=== PATIENT | male | born 1935 | race Caucasian/White ===

== ENCOUNTER 2018-08-07 20:51 | Inpatient (IN) ==
[2018-08-07] MEDS ORDERED: SODIUM CHLORIDE 0.9% 1,000 ML IV STA (22:06)
[2018-08-07] MEDS ORDERED: CEFEPIME 2,000 MG in SODIUM CHLORIDE 0.9% 100 ML IV STA (22:08)
[2018-08-07] MEDS ORDERED: VANCOMYCIN INJ 1,000 MG in SODIUM CHLORIDE 0.9% 250 ML IV STA (22:09)
[2018-08-07 22:46] LABS: Basophils % 0.3 % (0.0-0.8); Eosinophils # 0.1 10*3/uL (0.0-0.87); Eosinophils % 0.9 % (0.00-10.9); Hematocrit 40.7 VOL% (42.0-52.0); Hemoglobin 13.1 GM/DL (14.0-18.0); Immature Granulocytes % 0.4 %; Immature Granulocytes Absolute 0.04 #; Lymphocytes % 9.6 % (21.2-54.2); Mean Corpuscular HGB Conc 32.2 GM/DL (32-36); Mean Corpuscular Hemoglobin 32 PG (27-34); Mean Platelet Volume 10.3 FL (9.6-12.0); Monocytes # 0.7 10*3/uL (0.11-0.8); Monocytes % 7.1 % (1.7-12.7); Neutrophils # 8.2 10*3/uL (1.4-7.4); Neutrophils % 81.7 % (38.7-73.9); Platelet Count 167 T/CUMM (130-400); Red Blood Count 4.07 MC/CUMM (3.8-5.5); Red Cell Distribution Width 13.2 % (9.3-17.3); White Blood Count 10.1 T/CUMM (4-12)
[2018-08-07 23:07] LABS: Albumin 3.3 G/DL (3.4-5.0); Bilirubin,Total 0.5 MG/DL (0.2-1.0); Calcium 8.6 MG/DL (8.5-10.1); Osmolality,Calculated 281.7 MOS/KG (273-304); Total Protein 6.8 G/DL (6.4-8.3)
[2018-08-07] MEDS ORDERED: ceFAZolin 1,000 MG VIAL ONE (23:26)
[2018-08-07] MEDS ORDERED: SODIUM CHLORIDE 0.9% 100 ML IV ONE ×2 (23:27→23:36)
[2018-08-07] MEDS ORDERED: CEFEPIME 1,000 MG VIAL ONE (23:33)
[2018-08-08 01:21] LABS: Apearance,Urine Slightly Hazy (Clear); Bilirubin,Urine Negative (Negative); Blood, Urine Moderate mg/dL (Negative); Glucose,Urine (UA) Negative (Negative); Ketones,Urine Negative (Negative); Mucus,Urine Occasional /LPF (Occasional); Nitrite,Urine Positive (Negative); Protein,Urine 30 MG/DL; RBC,Urine 15 /HPF (0-4); Uric Acid Crystals,Urine Moderate /HPF (<1); Urine Color Yellow (Yellow); Urine Specific Gravity 1.024 (1.001-1.035); Urine Urobilinogen < 2.0 EU/DL (0.2-1.0); WBC,Urine 48 /HPF (0-6)
[2018-08-08] MEDS ORDERED: LORazepam 2 MG/1 ML VIAL IV STA (01:22)
[2018-08-08] MEDS ORDERED: ACETAMINOPHEN 325 MG TABLET PO PRN (02:38)
[2018-08-08] MEDS ORDERED: ONDANSETRON 4 MG/2 ML VIAL IV PRN (02:38)
[2018-08-08] MEDS: DEXTROSE 5% NACL 0.9% 1,000 ML IV SCH ×3 (04:03→20:15)
[2018-08-08] MEDS ORDERED: GLUCAGON 1 MG VIAL IM PRN (09:04)
[2018-08-08] MEDS ORDERED: DEXTROSE 50% 25 GM/50 ML SYRINGE IV PRN (09:04)
[2018-08-08 09:27] LABS: Basophils % 0.3 % (0.0-0.8); Eosinophils # 0.1 10*3/uL (0.0-0.87); Eosinophils % 1.5 % (0.00-10.9); Hematocrit 37.8 VOL% (42.0-52.0); Hemoglobin 12.2 GM/DL (14.0-18.0); Immature Granulocytes % 0.5 %; Immature Granulocytes Absolute 0.03 #; Lymphocytes # 0.7 10*3/uL (1.4-4.0); Lymphocytes % 10.4 % (21.2-54.2); Mean Corpuscular HGB Conc 32.3 GM/DL (32-36); Mean Corpuscular Hemoglobin 32 PG (27-34); Mean Corpuscular Volume 99.7 FL (87-102); Mean Platelet Volume 10.3 FL (9.6-12.0); Monocytes # 0.6 10*3/uL (0.11-0.8); Monocytes % 9.5 % (1.7-12.7); Neutrophils # 5.2 10*3/uL (1.4-7.4); Neutrophils % 77.8 % (38.7-73.9); Platelet Count 147 T/CUMM (130-400); Red Blood Count 3.79 MC/CUMM (3.8-5.5); Red Cell Distribution Width 13.2 % (9.3-17.3); White Blood Count 6.6 T/CUMM (4-12)
[2018-08-08] MEDS: DONEPEZIL 10 MG TABLET PO SCH ×2 (09:41→09:58)
[2018-08-08] MEDS: CEFEPIME 2,000 MG in SODIUM CHLORIDE 0.9% 100 ML IV SCH ×2 (09:41→18:01)
[2018-08-08] MEDS: sitaGLIPtin 100 MG TABLET PO SCH ×2 (09:41→09:53)
[2018-08-08] MEDS: LEVOTHYROXINE 25 MCG TABLET PO SCH ×2 (09:42→09:58)
[2018-08-08] MEDS: PANTOPRAZOLE 40 MG VIAL IV SCH (09:42)
[2018-08-08] MEDS: LOSARTAN 50 MG TABLET PO SCH ×2 (09:42→09:59)
[2018-08-08] MEDS: SERTRALINE 50 MG TABLET PO SCH ×2 (09:42→09:59)
[2018-08-08] MEDS: ASPIRIN CHEW 81 MG TABLET PO SCH ×2 (09:42→09:59)
[2018-08-08 09:49] LABS: Calcium 7.9 MG/DL (8.5-10.1); Osmolality,Calculated 281.5 MOS/KG (273-304); Potassium 3.8 MMOL/L (3.5-5.1)
[2018-08-08] MEDS: VANCOMYCIN INJ 1,250 MG in SODIUM CHLORIDE 0.9% 250 ML IV SCH (12:28)
[2018-08-08] MEDS ORDERED: MAGNESIUM SULF RIDER 2 GM in PREMIX 1 EACH IV ONE (13:08)
[2018-08-08] MEDS ORDERED: ALPRAZolam 0.25 MG TABLET PO SCH (13:30)
[2018-08-08] MEDS: methylPREDNISolone SOD SUC 40 MG/1 ML VIAL IV SCH (14:27)
[2018-08-08] MEDS ORDERED: LORazepam 2 MG/1 ML VIAL IV ONE (15:06)
[2018-08-08] MEDS: INSULIN REGULAR 100 UNIT/ML SUBCUT SCH (16:00)
[2018-08-08] MEDS ORDERED: HALOPERIDOL 5 MG/ML AMP IM PRN (18:25)
[2018-08-08] MEDS: BUDESONIDE 0.25 MG/2 ML NEB RESP TX SCH (18:30)
[2018-08-08] MEDS: ALBUTEROL/IPRATROPIUM 3 ML NEB RESP TX SCH (18:30)
[2018-08-08] MEDS ORDERED: risperiDONE 1 MG TABLET PO SCH (21:00)
[2018-08-08] MEDS ORDERED: OXYMETAZOLINE 0.05% NASAL SPRAY 15 ML BOTTLE BOTH NARES PRN (21:29)
[2018-08-08] MEDS ORDERED: cloNIDine 0.2 MG/24 HR PATCH TRANSDERM SCH (22:00)
[2018-08-08] MEDS: GABAPENTIN 300 MG CAPSULE PO SCH (22:10)
[2018-08-08] MEDS ORDERED: hydrALAZINE 20 MG/1 ML VIAL IV PRN (23:23)
[2018-08-09] MEDS: CEFEPIME 2,000 MG in SODIUM CHLORIDE 0.9% 100 ML IV SCH ×3 (00:51→19:37)
[2018-08-09] MEDS: VANCOMYCIN INJ 1,250 MG in SODIUM CHLORIDE 0.9% 250 ML IV SCH ×2 (00:51→12:44)
[2018-08-09] MEDS: ALBUTEROL/IPRATROPIUM 3 ML NEB RESP TX SCH ×4 (01:20→19:58)
[2018-08-09] MEDS: methylPREDNISolone SOD SUC 40 MG/1 ML VIAL IV SCH ×2 (02:13→19:13)
[2018-08-09] MEDS: DEXTROSE 5% NACL 0.9% 1,000 ML IV SCH (05:10)
[2018-08-09 05:39] LABS: Basophils % 0.1 % (0.0-0.8); Hematocrit 37.1 VOL% (42.0-52.0); Hemoglobin 12.1 GM/DL (14.0-18.0); Immature Granulocytes % 0.4 %; Immature Granulocytes Absolute 0.05 #; Lymphocytes # 0.4 10*3/uL (1.4-4.0); Lymphocytes % 3.2 % (21.2-54.2); Mean Corpuscular HGB Conc 32.6 GM/DL (32-36); Mean Corpuscular Hemoglobin 32 PG (27-34); Mean Corpuscular Volume 99.2 FL (87-102); Monocytes # 0.7 10*3/uL (0.11-0.8); Neutrophils # 10.3 10*3/uL (1.4-7.4); Neutrophils % 90.3 % (38.7-73.9); Platelet Count 162 T/CUMM (130-400); Red Blood Count 3.74 MC/CUMM (3.8-5.5); Red Cell Distribution Width 13.2 % (9.3-17.3); White Blood Count 11.4 T/CUMM (4-12)
[2018-08-09 06:02] LABS: Band Neutrophils 7 % (0-10); Lymphocytes 1 % (20-55); Nucleated Red Blood Cells 3 (0-5); Segmented Neutrophils 89 % (50-85); Total Cells Counted 100
[2018-08-09 06:04] LABS: Hypochromasia Slight; Platelet Estimate Adequate
[2018-08-09 06:06] LABS: Calcium 7.7 MG/DL (8.5-10.1); Osmolality,Calculated 288.3 MOS/KG (273-304); Potassium 3.9 MMOL/L (3.5-5.1)
[2018-08-09] MEDS: LEVOTHYROXINE 25 MCG TABLET PO SCH (07:03)
[2018-08-09] MEDS: BUDESONIDE 0.25 MG/2 ML NEB RESP TX SCH ×2 (07:46→19:58)
[2018-08-09] MEDS: INSULIN REGULAR 100 UNIT/ML SUBCUT SCH ×2 (07:52→19:13)
[2018-08-09] MEDS: SODIUM CHLORIDE 0.9% 1,000 ML IV SCH ×2 (08:30→19:17)
[2018-08-09] MEDS: sitaGLIPtin 100 MG TABLET PO SCH (08:55)
[2018-08-09] MEDS: ASPIRIN CHEW 81 MG TABLET PO SCH (08:55)
[2018-08-09] MEDS: LOSARTAN 50 MG TABLET PO SCH (08:55)
[2018-08-09] MEDS: DONEPEZIL 10 MG TABLET PO SCH (08:55)
[2018-08-09] MEDS: LORATADINE 10 MG TABLET PO SCH (08:55)
[2018-08-09] MEDS: GABAPENTIN 300 MG CAPSULE PO SCH ×2 (08:56→22:51)
[2018-08-09] MEDS: SERTRALINE 50 MG TABLET PO SCH (08:56)
[2018-08-09 09:13] LABS: Albumin 3.2 G/DL (3.4-5.0); Bilirubin,Direct 0.16 MG/DL (0.0-0.20); Bilirubin,Indirect 0.9 MG/DL (0.0-1.0); Bilirubin,Total 1.1 MG/DL (0.2-1.0); Total Protein 6.5 G/DL (6.4-8.3)
[2018-08-09] MEDS: PANTOPRAZOLE 40 MG VIAL IV SCH (10:35)
[2018-08-09 13:38] LABS: INR 1.1; PT Patient Result 11.6 SECS
[2018-08-09 15:24] LABS: Appearance,CSF Clear; Red Blood Cell,CSF 9 C/CUMM; White Blood Cell,CSF 5 C/CUMM
[2018-08-09 16:45] LABS: Glucose,CSF 116 MG/DL (40-70)
[2018-08-09 16:50] LABS: Lymphocytes,CSF 100 %
[2018-08-09] MEDS ORDERED: ZIPRASIDONE 20 MG/1 ML VIAL IM ONE (21:17)
[2018-08-10] MEDS: methylPREDNISolone SOD SUC 40 MG/1 ML VIAL IV SCH (02:23)
[2018-08-10] MEDS: CEFEPIME 2,000 MG in SODIUM CHLORIDE 0.9% 100 ML IV SCH ×3 (02:23→18:33)
[2018-08-10] MEDS: SODIUM CHLORIDE 0.9% 1,000 ML IV SCH ×2 (03:52→13:59)
[2018-08-10] MEDS: ALBUTEROL/IPRATROPIUM 3 ML NEB RESP TX SCH ×4 (04:32→21:32)
[2018-08-10 05:37] LABS: Hematocrit 37.7 VOL% (42.0-52.0); Immature Granulocytes % 0.7 %; Immature Granulocytes Absolute 0.05 #; Lymphocytes # 0.4 10*3/uL (1.4-4.0); Lymphocytes % 5.7 % (21.2-54.2); Mean Corpuscular HGB Conc 31.8 GM/DL (32-36); Mean Corpuscular Hemoglobin 32 PG (27-34); Mean Corpuscular Volume 100.5 FL (87-102); Mean Platelet Volume 10.7 FL (9.6-12.0); Monocytes # 0.3 10*3/uL (0.11-0.8); Monocytes % 3.4 % (1.7-12.7); Neutrophils # 6.8 10*3/uL (1.4-7.4); Neutrophils % 90.2 % (38.7-73.9); Platelet Count 152 T/CUMM (130-400); Red Blood Count 3.75 MC/CUMM (3.8-5.5); Red Cell Distribution Width 13.2 % (9.3-17.3); White Blood Count 7.6 T/CUMM (4-12)
[2018-08-10 05:43] LABS: Calcium 8.2 MG/DL (8.5-10.1); Osmolality,Calculated 289.1 MOS/KG (273-304); Potassium 4.4 MMOL/L (3.5-5.1)
[2018-08-10] MEDS: BUDESONIDE 0.25 MG/2 ML NEB RESP TX SCH ×2 (07:45→21:32)
[2018-08-10] MEDS: LEVOTHYROXINE 25 MCG TABLET PO SCH (08:43)
[2018-08-10] MEDS: LORATADINE 10 MG TABLET PO SCH (08:44)
[2018-08-10] MEDS: DONEPEZIL 10 MG TABLET PO SCH (08:44)
[2018-08-10] MEDS: sitaGLIPtin 100 MG TABLET PO SCH (08:44)
[2018-08-10] MEDS: LOSARTAN 50 MG TABLET PO SCH (08:44)
[2018-08-10] MEDS: GABAPENTIN 300 MG CAPSULE PO SCH ×2 (08:45→21:21)
[2018-08-10] MEDS: SERTRALINE 50 MG TABLET PO SCH (08:45)
[2018-08-10] MEDS: ASPIRIN CHEW 81 MG TABLET PO SCH (08:45)
[2018-08-10] MEDS: INSULIN REGULAR 100 UNIT/ML SUBCUT SCH ×2 (08:46→16:44)
[2018-08-10] MEDS: PANTOPRAZOLE 40 MG VIAL IV SCH (09:00)
[2018-08-10] MEDS ORDERED: VANCOMYCIN INJ 1,250 MG in SODIUM CHLORIDE 0.9% 250 ML IV SCH (12:00)
[2018-08-10] MEDS ORDERED: HALOPERIDOL 5 MG TABLET PO ONE (15:16)
[2018-08-10] MEDS: HALOPERIDOL 5 MG TABLET PO SCH ×2 (18:32→21:22)
[2018-08-11] MEDS: ALBUTEROL/IPRATROPIUM 3 ML NEB RESP TX SCH ×2 (00:34→07:20)
[2018-08-11] MEDS: CEFEPIME 2,000 MG in SODIUM CHLORIDE 0.9% 100 ML IV SCH (02:57)
[2018-08-11] MEDS ORDERED: methylPREDNISolone SOD SUC 40 MG/1 ML VIAL IV SCH (06:00)
[2018-08-11] MEDS: LEVOTHYROXINE 25 MCG TABLET PO SCH (06:44)
[2018-08-11 07:10] VITALS: BP 138/79
[2018-08-11] MEDS: BUDESONIDE 0.25 MG/2 ML NEB RESP TX SCH (07:20)
[2018-08-11] MEDS: INSULIN REGULAR 100 UNIT/ML SUBCUT SCH (09:31)
[2018-08-11] MEDS: LORATADINE 10 MG TABLET PO SCH (09:32)
[2018-08-11] MEDS: LOSARTAN 50 MG TABLET PO SCH (09:32)
[2018-08-11] MEDS: GABAPENTIN 300 MG CAPSULE PO SCH (09:32)
[2018-08-11] MEDS: sitaGLIPtin 100 MG TABLET PO SCH (09:32)
[2018-08-11] MEDS: ASPIRIN CHEW 81 MG TABLET PO SCH (09:32)
[2018-08-11] MEDS: DONEPEZIL 10 MG TABLET PO SCH (09:32)
[2018-08-11] MEDS: PANTOPRAZOLE 40 MG VIAL IV SCH (09:33)
[2018-08-11] MEDS: SERTRALINE 50 MG TABLET PO SCH (09:33)
[2018-08-11] MEDS: HALOPERIDOL 5 MG TABLET PO SCH (09:34)
[2018-08-12 12:51] LABS: M. Tuberculosis PCR Result Negative (Negative); M. Tuberculosis PCR Source SCF (CSF)
[2018-08-13 14:56] LABS: West Nile Virus Ab, IgG, CSF Negative (Negative); West Nile Virus Ab, IgM, CSF Negative (Negative)
== END 2018-08-11 10:23 | disposition home or self-care (01) | DRG 690 ==
LOC: EDUNIT# → EDBD → N.ED 20:51 → N.EDINP 08-08 02:47 → N.4E 08-08 03:21 → N.CC 08-08 17:29 → N.5E 08-10 20:47
PROVIDERS: ADMIT Family Medicine; ATTEND Family Medicine

== ENCOUNTER 2019-07-11 10:33 | Observation (INO) ==
[2019-07-11] MEDS ORDERED: METOPROLOL TARTRATE 5 MG/5 ML VIAL IV STA (10:53)
[2019-07-11] MEDS ORDERED: ENOXAPARIN 80 MG/0.8 ML SYRINGE SUBCUT STA (10:53)
[2019-07-11 11:06] LABS: Basophils # 0.1 10*3/uL (0.0-0.2); Basophils % 0.7 % (0.0-0.8); Eosinophils # 0.2 10*3/uL (0.0-0.87); Hematocrit 40.5 VOL% (42.0-52.0); Hemoglobin 13.2 GM/DL (14.0-18.0); Immature Granulocytes % 0.5 %; Immature Granulocytes Absolute 0.04 #; Lymphocytes # 1.5 10*3/uL (1.4-4.0); Lymphocytes % 19.6 % (21.2-54.2); Mean Corpuscular HGB Conc 32.6 GM/DL (32-36); Mean Corpuscular Volume 98.8 FL (87-102); Mean Platelet Volume 10.1 FL (9.6-12.0); Monocytes % 7.1 % (1.7-12.7); Neutrophils % 70.1 % (38.7-73.9); Platelet Count 237 T/CUMM (130-400); Red Cell Distribution Width 13.5 % (9.3-17.3); White Blood Count 7.6 T/CUMM (4-12)
[2019-07-11 11:17] LABS: PT Patient Result 11.1 SECS (9.6-12.2); Partial Thromboplastin Time 26.1 SECS (20.8-36.0)
[2019-07-11 11:34] LABS: Alanine Aminotransferase 22 U/L (16-61); Albumin 3.7 G/DL (3.4-5.0); Alkaline Phosphatase 81 U/L (45-117); Aspartate Amino Transferase 17 U/L (0-37); Bilirubin,Total < 0.39 MG/DL (0.2-1.0); Blood Urea Nitrogen 17 MG/DL (7-18); Calcium 8.8 MG/DL (8.5-10.1); Estimated Glom Filtration Rate 70 ML/MIN; Glucose 202 MG/DL (74-106); Osmolality,Calculated 290.1 MOS/KG (273-304); Total Protein 6.7 G/DL (6.4-8.3)
[2019-07-11] MEDS ORDERED: ACETAMINOPHEN 325 MG TABLET PO PRN (12:07)
[2019-07-11] MEDS ORDERED: ONDANSETRON 4 MG/2 ML VIAL IV PRN (12:07)
[2019-07-11] MEDS ORDERED: GLUCAGON 1 MG VIAL IM PRN (12:07)
[2019-07-11] MEDS ORDERED: DEXTROSE 50% 25 GM/50 ML VIAL IV PRN (12:07)
[2019-07-11] MEDS: INSULIN LISPRO 100 UNIT/ML SUBCUT SCH ×2 (17:28→20:41)
[2019-07-11] MEDS: SODIUM CHLORIDE 0.9% 1,000 ML IV SCH (17:28)
[2019-07-11] MEDS: DOCUSATE SODIUM 100 MG CAPSULE PO SCH (20:42)
[2019-07-11] MEDS ORDERED: DONEPEZIL 10 MG TABLET PO SCH (22:00)
[2019-07-11] MEDS ORDERED: FINASTERIDE 5 MG TABLET PO SCH (22:00)
[2019-07-11] MEDS: MEMANTINE 10 MG TABLET PO SCH (22:05)
[2019-07-12] MEDS: SODIUM CHLORIDE 0.9% 1,000 ML IV SCH ×2 (01:27→06:08)
[2019-07-12 01:54] LABS: Basophils % 0.4 % (0.0-0.8); Eosinophils # 0.2 10*3/uL (0.0-0.87); Eosinophils % 3.3 % (0.00-10.9); Hemoglobin 12.1 GM/DL (14.0-18.0); Immature Granulocytes % 0.4 %; Immature Granulocytes Absolute 0.03 #; Lymphocytes # 1.9 10*3/uL (1.4-4.0); Lymphocytes % 27.2 % (21.2-54.2); Mean Corpuscular HGB Conc 32.7 GM/DL (32-36); Mean Corpuscular Volume 98.1 FL (87-102); Mean Platelet Volume 9.9 FL (9.6-12.0); Monocytes % 8.5 % (1.7-12.7); Neutrophils % 60.2 % (38.7-73.9); Platelet Count 207 T/CUMM (130-400); Red Blood Count 3.77 MC/CUMM (3.8-5.5); Red Cell Distribution Width 13.6 % (9.3-17.3); White Blood Count 7.1 T/CUMM (4-12)
[2019-07-12 02:36] LABS: Calcium 7.9 MG/DL (8.5-10.1); Osmolality,Calculated 278.7 MOS/KG (273-304)
[2019-07-12] MEDS ORDERED: LEVOTHYROXINE 25 MCG TABLET PO SCH (07:00)
[2019-07-12 08:00] VITALS: BP 148/50
[2019-07-12] MEDS: MEMANTINE 10 MG TABLET PO SCH (08:28)
[2019-07-12] MEDS: DOCUSATE SODIUM 100 MG CAPSULE PO SCH (08:28)
[2019-07-12] MEDS: INSULIN LISPRO 100 UNIT/ML SUBCUT SCH (08:29)
[2019-07-12] MEDS ORDERED: PANTOPRAZOLE 40 MG TABLET PO SCH (09:00)
[2019-07-12] MEDS ORDERED: MULTIVITAMIN (CENTRUM) TABLET PO SCH (09:00)
[2019-07-12] MEDS ORDERED: LOSARTAN 25 MG TABLET PO SCH (09:00)
[2019-07-12] MEDS ORDERED: ASPIRIN CHEW 81 MG TABLET PO SCH (09:00)
[2019-07-12 09:40] LABS: Apearance,Urine CLEAR (Clear); Bilirubin,Urine Negative (Negative); Blood, Urine Moderate mg/dL (Negative); Glucose,Urine (UA) Negative (Negative); Ketones,Urine Negative (Negative); Nitrite,Urine Negative (Negative); Protein,Urine Negative; RBC,Urine 3 /HPF (0-4); Urine Color Straw (Yellow); Urine Urobilinogen < 2.0 EU/DL (0.2-1.0); WBC,Urine 1 /HPF (0-6)
[2019-07-12] MEDS ORDERED: ENOXAPARIN 40 MG/0.4 ML SYRINGE SUBCUT SCH (11:00)
[2019-07-12] MEDS ORDERED: SIMVASTATIN 40 MG TABLET PO SCH (21:00)
== END 2019-07-12 10:04 | disposition home or self-care (01) ==
LOC: N.EDINP 10:33 → N.ED 10:33 → N.EDINP 13:03 → N.2W 13:09
PROVIDERS: ADMIT Family Medicine; ATTEND Family Medicine